=== PATIENT | female | born 1960 | race Two or more races ===

== ENCOUNTER 2021-06-05 20:12 | Emergency (ER) | payer MEDICARE, OTHER ==
[~2021-06-05] VITALS: Ht 154.9 cm; Wt 73.5 kg
[~2021-06-05 20:12] MED LIST: FAMILY TO BRING
--- NOTE | 2021-06-05 20:58 | NUR ---
BLOOD DONE AND SENT TO LAB
--- NOTE | 2021-06-05 20:59 | NUR ---
COVID SWAB DONE AND SENT TO LAB
[2021-06-05 21:17] LABS: BASOPHILS % (AUTO) 0.5 % (0.0-2.0); EOSINOPHILS % (AUTO) 1.7 % (0.0-6.0); HEMATOCRIT 39 % (33-45); HEMOGLOBIN 12.8 g/dL (11.5-14.8); LYMPHOCYTES # (AUTO) 1.8 K/uL (0.8-4.8); LYMPHOCYTES % (AUTO) 20.1 % (20.0-44.0); MEAN CORPUSCULAR HGB CONC 33 g/dl (31.0-36.0); MEAN CORPUSCULAR VOLUME 86 fL (82-100); MONOCYTES # (AUTO) 0.8 K/uL (0.1-1.30); MONOCYTES % (AUTO) 8.7 % (2.0-12.0); NEUTROPHILS # (AUTO) 6.2 K/uL (1.8-8.9); PLATELET COUNT (AUTO) 370 K/uL (150-450); RED BLOOD CELL COUNT(AUTO) 4.51 MIL/uL (4.0-5.2); WHITE BLOOD COUNT (AUTO) 8.9 K/uL (4.3-11.0)
[2021-06-05 21:24] LABS: POTASSIUM 4.2 mmol/L (3.5-5.1)
[2021-06-05 21:29] LABS: CALCIUM, SERUM 8.5 mg/dL (8.5-10.1); CREATININE 0.8 mg/dL (0.6-1.3)
[2021-06-05 21:38] VITALS: BP 145/88
--- NOTE | 2021-06-05 21:38 | NUR ---
Patient discharged to home in stable condition. Written and verbal after care instructions given. Patient verbalizes understanding of instruction.
== END 2021-06-05 21:39 | disposition home or self-care (01) ==
LOC: ER 20:38
DX: J40 Bronchitis, not specified as acute or chronic (principal); Z20.822 Contact with and (suspected) exposure to COVID-19; I11.9 Hypertensive heart disease without heart failure; Z95.5 Presence of coronary angioplasty implant and graft; E11.9 Type 2 diabetes mellitus without complications; I70.0 Atherosclerosis of aorta
CPT/HCPCS: 36415; 71045-TC; 80048-TC; 85025-TC; C9803